=== PATIENT | male | born 1965 | race Two or more races ===

== ENCOUNTER 2016-05-27 | Outpatient (CLI) | END 2016-05-27 01:45 | disposition critical access hospital (66) | CPT/HCPCS: A0425; A0429 ==

== ENCOUNTER 2016-05-27 02:13 | Emergency (ER) | payer MEDICAID ==
[2016-05-27] MEDS ORDERED: LORazepam 2 MG/ML SYRINGE IVP STA (03:28)
[2016-05-27] MEDS ORDERED: LORazepam 2 MG/ML SYRINGE ONE (03:35)
[2016-05-27] MEDS ORDERED: SODIUM CHLORIDE 0.9% 1,000 ML IV STA (06:33)
[2016-05-27] MEDS ORDERED: IOPAMIDOL-300 100 ML VIAL IVP ONE (07:06)
== END 2016-05-27 08:33 | disposition home or self-care (01) ==
DX: R07.9 Chest pain, unspecified (principal)
CPT/HCPCS: 36415; 71020; 71275; 80053; 83690; 84484; 85025; 85379; 93005; 93010; 96374; 99283; 99284; Q9967